=== PATIENT | male | born 1995 | race Caucasian/White ===

== ENCOUNTER 2024-06-20 09:10 | Emergency (ER) | payer OTHER, SELFPAY ==
[2024-06-20 09:14] VITALS: BP 140/87; PULSE 96; TEMP 36.7; O2SAT 99; BMI 27.4
--- NOTE | 2024-06-20 09:38 | XR_ITS ---
The [address] [address] Patient Name: MAYA JOHNSON MRN: [id number] date: 1995 Sex: M Assigned Patient Location: ER Current Patient Location: ED.MAIN Accession/Order Number: [id number] Exam Date: 06/20/2024 09:30 Report Date: 06/20/2024 09:53 At the request of: ALEJANDRO PARKS Procedure: XR knee RT 3V PROCEDURE: XR knee RT 3V HISTORY: pain COMPARISON: None. FINDINGS: BONES:No fracture, acute abnormality, or significant arthropathy. SOFT TISSUES:No visible soft tissue swelling. EFFUSION:None visible. OTHER: Negative. XR/XR knee RT 3V IMPRESSION: 1. No appreciable bone abnormality or joint effusion. Electronically authenticated by: YORDAN ABDUL Date: 06/20/2024 09:53
[2024-06-20] MEDS: KETOROLAC TROMETHAMINE 30 MG/ML VIAL IM (09:42)
--- NOTE | 2024-06-20 10:02 | ED.LOWEXI1 ---
HPI HPI - Extremity Injury (Lower) General Chief Complaint: Extremity Injury, Lower Time Seen by Provider: 06/20/24 09:17 Source: patient Mode of arrival: walk-in Limitations: no limitations History of Present Illness HPI Narrative: The patient is coming to the ER with a right knee pain that started almost 2 weeks ago when he was bowling, he thinks that he twisted his knee at that time he had no fall or injury since then but he has been having pain mostly when he was bending his right knee And he have the swelling that developed over days in the right knee No other complaints and there is no calf tenderness Related Data Previous Rx's ?Medication ?Instructions ?Recorded diclofenac sodium 75 mg 75 mg PO BID PRN pain #20 tabs 06/20/24 tablet,delayed release Allergies Allergy/AdvReac Type Severity Reaction Status Date / Time No Known Drug Allergies Allergy Verified 06/20/24 09:13 Opioid HPI Opioid Management Most Recent Pain and Opioid Data: Last Pain Scale 4 06/20/24 09:42 06/20/24 Last ED Pain Assessment 06/20/24 09:21 Last MAR Pain Assessment 06/20/24 09:42 Review of Systems ROS Status of ROS 10 or more systems reviewed and unremarkable except as noted in history and below Exam Narrative Exam Narrative: Nurses notes and vital signs reviewed and patient is not hypoxic. Right lower extremity: The patient have tenderness upon palpation of the knee anteriorly and there is a effusion that is obvious almost moderate size of the right knee patient have limitation of flexion due to swelling and pain, there is no calf tenderness the patient had a vascular injury General: Well-appearing and in no apparent distress. Skin: Warm, dry, no pallor noted. No rash. Head: Normocephalic, atraumatic. Neck: Supple, non-tender. Eye: Pupils are equal, round and EOMI. No scleral icterus. Ears, Nose, Mouth, and Throat: TM are clear, no nasal mucosal hypertrophy. Oral mucosa is moist, no posterior oropharynx erythema, uvula is mid-line Cardiovascular: Regular Rate and Rhythm without murmur, gallop or rub. Respiratory: No accessory muscle use or respiratory distress. Lungs are clear to auscultation, no wheezing, rales or rhonchi Chest Wall: no tenderness Back: No midline thoracic or lumbar vertebral tenderness. No CVA tenderness Constitutional Vital Signs, click to edit/add: Last Vital Signs Temp 98.1 F 06/20/24 09:14 Pulse 96 H 06/20/24 09:14 Resp 18 06/20/24 09:14 BP 140/87 06/20/24 09:14 Pulse Ox 99 06/20/24 09:14 Course Vital Signs Vital signs: Vital Signs Temperature 98.1 F 06/20/24 09:14 Pulse Rate 96 H 06/20/24 09:14 Respiratory Rate 18 06/20/24 09:14 Blood Pressure 140/87 06/20/24 09:14 Pulse Oximetry 99 06/20/24 09:14 Temperature 98.1 F 06/20/24 09:14 Pulse Rate 96 H 06/20/24 09:14 Respiratory Rate 18 06/20/24 09:14 Blood Pressure 140/87 06/20/24 09:14 Pulse Oximetry 99 06/20/24 09:14 MDM - Extremity Injury (Lower) MDM Narrative Medical decision making narrative: The patient effusion is mostly secondary to inflammation and pain due to ligament injury the patient mentioned that he always able to walk only when extending his knee X-ray of the right knee showed no acute pathology and the patient was referred to orthopedic for further evaluation with an MRI with resting elevation and NSAID for treatment in addition to knee immobilizer The patient is to follow up with primary care physician in next 2-3 days or to return to the emergency department should any of the signs or symptoms worsen or new symptoms develop. The patient agrees with the following Diagnosis and Treatment plan and the patient will be discharged home. Discharge Plan Discharge Chief Complaint: Extremity Injury, Lower Clinical Impression: Injury of knee Patient Disposition: Home, Self-Care Time of Disposition Decision: 10:00 Condition: Good Prescriptions / Home Meds: New diclofenac sodium 75 mg tablet,delayed release (DR/EC) 75 mg PO BID PRN (Reason: pain ) Qty: 20 0RF Print Language: Luxembourgish Instructions: Swollen Knee Joint (ED), Knee Immobilizer (ED) Referrals: Physician,Non-Staff, [Primary Care Provider] - 1 week Sb Bernardo MD [Physician] - 1 week
== END 2024-06-20 10:06 | disposition home or self-care (01) ==
PROVIDERS: Emergency Provider Emergency Medicine
DX: S89.91XA Unspecified injury of right lower leg, initial encounter (principal); X58.XXXA Exposure to other specified factors, initial encounter
CPT/HCPCS: 73562; 96372; 99284; J1885